=== PATIENT | female | born 1965 | race American Indian/Alaskan Native ===

== ENCOUNTER 2018-04-01 04:45 | Emergency (ER) | payer OTHER ==
[2018-04-01] MEDS ORDERED: DECADRON IV ONE (08:16)
[2018-04-01] MEDS ORDERED: TORADOL IV ONE (08:16)
[2018-04-01] MEDS ORDERED: NACL 0.9% 500 ML 500 ML IV ONE (08:17)
--- NOTE | 2018-04-01 08:33 | Emergency Department Report ---
ED General Adult HPI - General Chief complaint: Sore Throat Stated complaint: SORETHROAT Time Seen by Provider: 04/01/18 08:05 Source: patient, RN notes reviewed Mode of arrival: Ambulatory Limitations: No Limitations - History of Present Illness Initial comments: This is a 52-year-old female who is previously known to this provider. The patient presents to the ER with nontraumatic right-sided submandibular pain and swelling. This is been going on for around 36 hours. Patient reports that she went to sleep, feeling fine, did not subjectively feel like she had eaten or consumed anything. She reports that upon waking up, she had this pain and swelling. Her symptoms are constant. They do not radiate anywhere, they worsen with palpation, and they decreased with rest. -: Gradual Location: face, mouth, neck Radiation: non-radiation Severity scale (0 -10): 10 Quality: aching Consistency: constant Improves with: medication, rest Worsens with: movement Associated Symptoms: other (patient complains of sore throat, foreign body sensation, neck pain, neck swelling. Also complains of hoarse voice.). denies : confusion, chest pain, cough, diaphoresis, fever/chills, headaches, loss of appetite, malaise, nausea/vomiting, rash, seizure, shortness of breath, syncope , weakness - Related Data Allergies Allergy/AdvReac Type Severity Reaction Status Date / Time codeine Allergy Unknown Verified 04/01/18 05:01 ED Review of Systems ROS: Stated complaint: SORETHROAT Other details as noted in HPI Comment: All other systems reviewed and negative ED Past Medical Hx - Past Medical History Previous Medical History?: Yes Hx Hypertension: Yes (does not take Medication for it) Additional medical history: Anemia, Fibroids - Social History Smoking Status: Never Smoker ED Physical Exam - General Limitations: No Limitations General appearance: alert, in no apparent distress - Head Head exam: Present: atraumatic, normocephalic - Eye Eye exam: Present: normal appearance, PERRL, EOMI - ENT ENT exam: Present: normal exam, normal orophraynx, mucous membranes moist, TM's normal bilaterally, normal external ear exam, other (there is no sublingual tenderness. There is no elevation of the base tongue.) - Neck Neck exam: Present: normal inspection, tenderness, lymphadenopathy, other ( there is right-sided submandibular swelling and tenderness. There is some induration on the right side. There is no stridor. The voice is hoarse. The patient is speaking in full sentences. There is mild trismus.). Absent: full ROM, thyromegaly - Respiratory Respiratory exam: Present: normal lung sounds bilaterally. Absent: respiratory distress - Cardiovascular Cardiovascular Exam: Present: regular rate, normal rhythm, normal heart sounds. Absent: bradycardia, tachycardia, irregular rhythm, systolic murmur, diastolic murmur, rubs, gallop - GI/Abdominal GI/Abdominal exam: Present: soft, normal bowel sounds. Absent: distended, tenderness, guarding, rebound, rigid, pulsatile mass - Extremities Exam Extremities exam: Present: normal inspection, full ROM, normal capillary refill. Absent: tenderness, pedal edema, joint swelling, calf tenderness - Back Exam Back exam: Present: normal inspection, full ROM. Absent: tenderness, CVA tenderness (R), paraspinal tenderness, vertebral tenderness - Neurological Exam Neurological exam: Present: alert, oriented X3, CN II-XII intact, normal gait, other (Extraocular movements intact. Tongue midline. No facial droop. Facial sensation intact to light touch in the V1, V2, V3 distribution bilaterally. 5 and 5 strength in 4 extremities.. Sensation is intact to light touch in 4 extremities.). Absent: motor sensory deficit - Psychiatric Psychiatric exam: Present: normal affect, normal mood - Skin Skin exam: Present: warm, dry, intact, normal color. Absent: rash ED Course Vital Signs 04/01/18 04/01/18 04/01/18 04:48 05:07 06:56 Temperature 98.8 F 98.8 F Pulse Rate 84 82 Respiratory 18 18 16 Rate Blood Pressure 159/99 159/99 Blood Pressure [Left] O2 Sat by Pulse 95 97 100 Oximetry 04/01/18 04/01/18 07:02 08:36 Temperature Pulse Rate 66 Respiratory 16 16 Rate Blood Pressure Blood Pressure 164/95 [Left] O2 Sat by Pulse 100 Oximetry - Reevaluation(s) Reevaluation #1: 04/01/18 09:54 Differential diagnosis, including but not limited to: Abscess, adenopathy, foreign body, malignancy Assessment and plan: 52-year-old female with overnight development of right- sided submandibular pain and swelling horse voice, and trismus. She is able to open up her mouth somewhat and I can see some of the posterior pharynx, she has no stridor and she is protecting her airway. She is consented for CAT scan of the neck with IV contrast through verbal and written consent. Risks, benefits, alternatives were discussed with the patient who verbalized understanding. She is treated empirically with Decadron, laboratory studies reviewed, CT scan interpretation is pending at this time. Reevaluation #2: 04/01/18 10:14 The CAT scan demonstrates an early right-sided peritonsillar abscess. The patient is protecting her airway at this time. However she will require otolaryngology evaluation and consultation, which this hospital does not possess. The patient has had an emergency medical screening exam and has been found to have an emergency medical condition which cannot be definitively managed at this hospital, therefore, in the interest of patient's safety, patient will require transfer for definitive evaluation, management and consultation. The patient gives verbal consent for transport/transfer. Case was discussed with Dr. Hoyt, [facility] physician, they are currently seeking to arrange transportation. Patient does not meet sepsis criteria at this time by laboratory parameters or by vital sign parameters. Reevaluation #3: 04/01/18 11:14 Dr. Hoyt of the [facility] network has arranged for patient to be transferred to [facility], she has consult in otolaryngology, the accepting physician is Dr. Jose Angel Ayala Medical Decision Making - Lab Data Result diagrams: 04/01/18 08:20 04/01/18 08:20 Vital Signs 04/01/18 04/01/18 04/01/18 04:48 05:07 06:56 Temperature 98.8 F 98.8 F Pulse Rate 84 82 Respiratory 18 18 16 Rate Blood Pressure 159/99 159/99 Blood Pressure [Left] O2 Sat by Pulse 95 97 100 Oximetry 04/01/18 04/01/18 07:02 08:36 Temperature Pulse Rate 66 Respiratory 16 16 Rate Blood Pressure Blood Pressure 164/95 [Left] O2 Sat by Pulse 100 Oximetry Lab Results 04/01/18 04/01/18 Range/Units 08:20 08:20 WBC 12.0 H (4.5-11.0) K/mm3 RBC 4.33 (3.65-5.03) M/mm3 Hgb 11.7 (10.1-14.3) gm/dl Hct 36.6 (30.3-42.9) % MCV 85 (79-97) fl MCH 27 L (28-32) pg MCHC 32 (30-34) % RDW 14.3 (13.2-15.2) % Plt Count 216 (140-440) K/mm3 Sodium 139 (137-145) mmol/L Potassium 3.7 (3.6-5.0) mmol/L Chloride 102.0 (98-107) mmol/L Carbon Dioxide 26 (22-30) mmol/L Anion Gap 15 mmol/L BUN 10 (7-17) mg/dL Creatinine 0.6 L (0.7-1.2) mg/dL Estimated GFR > 60 ml/min BUN/Creatinine Ratio 17 % Glucose 93 (65-100) mg/dL Calcium 9.4 (8.4-10.2) mg/dL Total Creatine Kinase 82 (30-135) units/L - Radiology Data Radiology results: report reviewed, image reviewed Print Report Referring Physician: HILARY NGUYEN Patient Name: MEGHANA OSHEA Date of : 1965 Sex: Female Report Date: 2018-04-01 Report Status: Finalized Findings [facility] [address] [place] [address] Cat Scan Report Signed Patient: MEGHANA OSHEA MR#: [id number] : 1965 Acct:[id number] Age/Sex: 52 / F ADM Date: 04/01/18 Loc: ED Attending Dr: Ordering Physician: HILARY NGUYEN MD Date of Service: 04/01/18 Procedure(s): CT neck w con Accession Number(s): [id number] cc: HILARY NGUYEN MD CT NECK WITH CONTRAST: HISTORY: Neck pain, swelling. TECHNIQUE: Helical CT following IV contrast. Sagittal and coronal reformatted images. FINDINGS: There is mild swelling and edema within the right peritonsillar tissue. There is a subtle area of decreased attenuation is a 1.7 x 1.0 cm on image 25, series 2 which probably represents an early peritonsillar abscess. The remaining soft tissue structures of the neck are within normal limits. The airway is patent. The vascular structures are patent. No bulky adenopathy or necrotic lymph nodes. There is reversal of the normal cervical lordosis with multilevel degenerative disc disease. IMPRESSION: Early right peritonsillar abscess as described. Transcribed By: TTR Dictated By: TAMI KENDRICK JR, MD Electronically Authenticated By: TAMI KENDRICK JR, MD Signed Date/Time: 04/01/18955 DD/ 3 TD/TT: 04/01/18955 Critical care attestation.: If time is entered above; I have spent that time in minutes in the direct care of this critically ill patient, excluding procedure time. ED Disposition Clinical Impression: Peritonsillar abscess Disposition: [facility] IP Is pt being admited?: No Does the pt Need Aspirin: No Condition: Good Referrals: PRIMARY CARE, [Primary Care Provider] - 3-5 Days
[2018-04-01 08:39] LABS: Hematocrit 36.6 % (30.3-42.9); Hemoglobin 11.7 gm/dl (10.1-14.3); Mean Corpuscular HGB Conc 32 % (30-34); Mean Corpuscular Hemoglobin 27 pg (28-32); Mean Corpuscular Volume 85 fl (79-97); Platelet Count 216 K/mm3 (140-440); Red Blood Count 4.33 M/mm3 (3.65-5.03); Red Cell Distribution Width 14.3 % (13.2-15.2)
[2018-04-01 09:02] LABS: BUN/Creatinine Ratio 17; Blood Urea Nitrogen 10 mg/dL (7-17); Calcium 9.4 mg/dL (8.4-10.2); Hemolysis Index 4
--- NOTE | 2018-04-01 10:05 | Cat Scan Report ---
CT NECK WITH CONTRAST: HISTORY: Neck pain, swelling. TECHNIQUE: Helical CT following IV contrast. Sagittal and coronal reformatted images. FINDINGS: There is mild swelling and edema within the right peritonsillar tissue. There is a subtle area of decreased attenuation is a 1.7 x 1.0 cm on image 25, series 2 which probably represents an early peritonsillar abscess. The remaining soft tissue structures of the neck are within normal limits. The airway is patent. The vascular structures are patent. No bulky adenopathy or necrotic lymph nodes. There is reversal of the normal cervical lordosis with multilevel degenerative disc disease. IMPRESSION: Early right peritonsillar abscess as described.
[2018-04-01] MEDS ORDERED: UNASYN/NS 3 GM/100 ML 3 GM/100 ML BAG IV SCH (11:30)
[2018-04-01 12:08] VITALS: BP 160/99
== END 2018-04-01 12:56 | disposition short-term general hospital (02) ==
LOC: ED 04:45
DX: K65.1 Peritoneal abscess (principal); Z88.5 Allergy status to narcotic agent; I10 Essential (primary) hypertension; Z86.2 Personal history of diseases of the blood and blood-forming organs and certain disorders involving the immune mechanism
CPT/HCPCS: 36415; 70491; 80048; 82550; 85027; 96365; 96375; 99284; J0295; J1100; J1885; J7040; Q9967